=== PATIENT | male | born 1965 | race Caucasian/White ===

== ENCOUNTER → 2019-10-19 13:05 | Outpatient (BNVA) | payer MEDICARE, MEDICAID, SELFPAY | PROVIDERS: Family Provider Internal Medicine; PCP Internal Medicine; Referring Provider Internal Medicine; Visit Provider Podiatrist Foot & Ankle Surgery | DX: M79.672 Pain in left foot (principal); M79.671 Pain in right foot | CPT/HCPCS: 73620; 73630 ==

== ENCOUNTER → 2019-11-10 09:39 | Outpatient (BNVA) | payer MEDICARE, MEDICAID, SELFPAY | PROVIDERS: Family Provider Internal Medicine; PCP Internal Medicine; Visit Provider Nurse Practitioner | DX: F31.81 Bipolar II disorder (principal); F70 Mild intellectual disabilities | CPT/HCPCS: 99213 ==

== ENCOUNTER → 2020-05-09 07:49 | Outpatient (BNVA) | payer MEDICARE, MEDICAID, SELFPAY | PROVIDERS: Family Provider Internal Medicine; PCP Internal Medicine; Visit Provider Nurse Practitioner | DX: F31.81 Bipolar II disorder (principal); F70 Mild intellectual disabilities | CPT/HCPCS: 99213 ==

== ENCOUNTER → 2020-11-07 07:33 | Outpatient (BNVA) | payer MEDICARE, MEDICAID, SELFPAY | PROVIDERS: Family Provider Internal Medicine; PCP Internal Medicine; Visit Provider Nurse Practitioner | DX: F31.81 Bipolar II disorder (principal); F70 Mild intellectual disabilities | CPT/HCPCS: 99214 ==

== ENCOUNTER → 2021-05-01 08:48 | Outpatient (BNVA) | payer MEDICARE, MEDICAID, SELFPAY | PROVIDERS: Family Provider Internal Medicine; PCP Internal Medicine; Visit Provider Nurse Practitioner | DX: F31.81 Bipolar II disorder (principal); F70 Mild intellectual disabilities; F43.21 Adjustment disorder with depressed mood | CPT/HCPCS: 99214 ==

== ENCOUNTER → 2021-06-26 09:12 | Outpatient (BNVA) | payer MEDICARE, MEDICAID, SELFPAY | PROVIDERS: Family Provider Internal Medicine; PCP Internal Medicine; Visit Provider Nurse Practitioner | DX: F31.81 Bipolar II disorder (principal); F70 Mild intellectual disabilities; F43.21 Adjustment disorder with depressed mood | CPT/HCPCS: 99214 ==

== ENCOUNTER → 2021-08-20 08:45 | Outpatient (BNVA) | payer MEDICARE, MEDICAID, SELFPAY | PROVIDERS: Family Provider Internal Medicine; PCP Internal Medicine; Visit Provider Nurse Practitioner | DX: F31.81 Bipolar II disorder (principal); F70 Mild intellectual disabilities | CPT/HCPCS: 99214 ==

== ENCOUNTER → 2021-11-19 08:46 | Outpatient (BNVA) | payer MEDICARE, MEDICAID, SELFPAY | PROVIDERS: Family Provider Internal Medicine; PCP Internal Medicine; Visit Provider Nurse Practitioner | DX: F31.9 Bipolar disorder, unspecified (principal); F70 Mild intellectual disabilities | CPT/HCPCS: 99214 ==

== ENCOUNTER → 2022-02-10 09:06 | Outpatient (BNVA) | payer MEDICARE, MEDICAID, SELFPAY | PROVIDERS: Family Provider Internal Medicine; PCP Internal Medicine; Visit Provider Podiatrist Foot & Ankle Surgery | DX: L84 Corns and callosities (principal); M79.672 Pain in left foot; M20.41 Other hammer toe(s) (acquired), right foot; M20.11 Hallux valgus (acquired), right foot; M20.12 Hallux valgus (acquired), left foot; M20.42 Other hammer toe(s) (acquired), left foot | CPT/HCPCS: 99213 ==

== ENCOUNTER → 2022-06-04 10:50 | Outpatient (BNVA) | payer MEDICARE, MEDICAID, OTHER, SELFPAY | PROVIDERS: Family Provider Internal Medicine; Visit Provider Podiatrist Foot & Ankle Surgery | DX: L85.1 Acquired keratosis [keratoderma] palmaris et plantaris (principal); L84 Corns and callosities; M20.41 Other hammer toe(s) (acquired), right foot; M20.42 Other hammer toe(s) (acquired), left foot; M20.11 Hallux valgus (acquired), right foot; M20.12 Hallux valgus (acquired), left foot | CPT/HCPCS: 17110 ==

== ENCOUNTER 2022-09-07 08:57 | Emergency (ER) | payer MEDICARE, MEDICAID, SELFPAY ==
[2022-09-07 09:06] VITALS: BP 104/69; PULSE 71; RESP 16; TEMP 36.1; O2SAT 95
--- NOTE | 2022-09-07 09:29 | CTR_ITS ---
PROCEDURE INFORMATION: Exam: CT Head Without Contrast Exam date and time: 09/07/2022 9:36 AM Age: 56 years old Clinical indication: Injury or trauma; Fall; Blunt trauma (contusions or hematomas) TECHNIQUE: Imaging protocol: Computed tomography of the head without contrast. Radiation optimization: All CT scans at this facility use at least one of these dose optimization techniques: automated exposure control; mA and/or kV adjustment per patient size (includes targeted exams where dose is matched to clinical indication); or iterative reconstruction. COMPARISON: No relevant prior studies available. RADIATION DOSE METRICS: Total DLP (mGy-cm): 1231.84 FINDINGS: Brain: Congenital absence of the corpus callosum is seen with parallel appearance of the ventricles. Mildly prominent brain sulci seen.There are no intracranial masses, mass effect or midline shift. There is no cerebral edema. There is no subarachnoid hemorrhage. There are no intra-or extra-axial fluid collections, intraventricular or intraparenchymal hemorrhage. Cerebral ventricles: Parallel appearance of the ventricles is seen, related to congenital change. Mildly prominent ventricles are seen. The 3rd and 4th ventricles appear unremarkable. The suprasellar and basilar cisterns appear unremarkable. Paranasal sinuses: The visualized sinuses show a right sphenoid sinus 0.7 x 1.1 cm mucous retention cyst. Mastoid air cells: The visualized mastoids are unremarkable. Orbital cavities: The visualized orbits are unremarkable. Bones/joints: No definite acute osseous or skull abnormalities seen. Soft tissues: Unremarkable. Notes: If there is further clinical concern for intracranial pathology, MRI of the brain may be performed for further assessment. CT/CT head wo con* [id number] IMPRESSION: 1. No noncontrast CT evidence of acute posttraumatic intracranial abnormality. 2. Congenital absence of the corpus callosum.
--- NOTE | 2022-09-07 09:29 | CTR_ITS ---
PROCEDURE INFORMATION: Exam: CT Cervical Spine Without Contrast Exam date and time: 09/07/2022 9:36 AM Age: 56 years old Clinical indication: Injury or trauma; Fall; Blunt trauma TECHNIQUE: Imaging protocol: Computed tomography of the cervical spine without contrast. Radiation optimization: All CT scans at this facility use at least one of these dose optimization techniques: automated exposure control; mA and/or kV adjustment per patient size (includes targeted exams where dose is matched to clinical indication); or iterative reconstruction. COMPARISON: No relevant prior studies available. RADIATION DOSE METRICS: Total DLP (mGy-cm): 308.8 FINDINGS: Bones/joints: There is straightening of the alignment of the cervical spine, which may be related to positioning or muscle spasm. The skull base alignment appears normal. There are no fractures. The spinous processes are normal. The facet joint, spinolaminar and spinous process alignments are normal. The atlantodental alignment and craniocervical junction region appear unremarkable. Mild atlantodental degenerative changes. Medium-sized anterior degenerative osteophytes are seen at the C4-C5 and C5-C6 levels. C1-C2: Normal alignment. No spinal canal narrowing. C2-C3: The disc is unremarkable. Unremarkable facet joints. No central spinal stenosis. No neuroforaminal narrowing. C3-C4: The disc is unremarkable. Unremarkable facet joints. No central spinal stenosis. No neuroforaminal narrowing. C4-C5: The disc is unremarkable. Unremarkable facet joints. No central spinal stenosis. No neuroforaminal narrowing. C5-C6: The disc is unremarkable. Unremarkable facet joints. No central spinal stenosis. No neuroforaminal narrowing. C6-C7: The disc is unremarkable. Unremarkable facet joints. No central spinal stenosis. No neuroforaminal narrowing. C7-T1: The disc is unremarkable. Unremarkable facet joints. No central spinal stenosis. No neuroforaminal narrowing. Lungs: Lung apices are normal. Soft tissues: Prevertebral soft tissues are unremarkable. The paraspinal soft tissues appear unremarkable. Notes: MRI or CT myelogram may be performed for further evaluation, if there is clinical concern. CT/CT cervical spin wo con* [id number] IMPRESSION: No fractures or subluxations of the cervical spine.
[2022-09-07] MEDS: tetanus-diphtheria tox (adult) 0.5 mL SDV IM (10:12)
--- NOTE | 2022-09-07 10:37 | W.ED.WOUNDLC ---
HPI - Wound/Laceration General: Chief Complaint: Wound/Laceration Stated Complaint: fall, right ear lac Time Seen by Provider: 09/07/22 09:10 History of Present Illness: 56-year-old male patient presents to the emergency department with laceration to the right outer ear. Patient states he tripped and fell and hit a dresser. Patient does not know his last tetanus shot. Patient is not sure if he lost any consciousness. Patient denies any neck pain. Patient denies any head pain at this time. Patient denies any nausea or vomiting. Patient denies any history of being on anticoagulants. Associated symptoms: Denies chills, fever(s), nausea, syncope or vomiting Review of Systems Const: Denies: fever(s), chills, body aches, change in appetite, change in weight, fatigue, malaise or diaphoresis Eyes: Denies: change in vision, blurry vision, blind spots, photophobia, eye discomfort, eye discharge, eye redness, floaters or seeing flashes ENMT: Denies: throat pain, uvular edema, enlarged tonsils, odynophagia, hoarseness, mouth pain, swelling of lips/tongue, oral sores, bleeding gums, dental pain, dry mouth, ear discharge, change in hearing, tinnitus, disequilibrium, nasal discharge, nasal congestion, post nasal drip or sinus pain Card: Denies: chest pain, palpitations, irregular heart rhythm, edema, swelling of feet/ankles, lightheadedness, syncope, pre-syncope, dyspnea on exertion, orthopnea, leg pain with exertion or acrocyanosis Resp: Denies: dyspnea, productive cough, non-productive cough, wheezing, stridor, pain on inspiration, change in phlegm color, hemoptysis or chest congestion GI: Denies: abdominal pain, nausea, vomiting, hematemesis, dysphagia, diarrhea, constipation, GI cramping, change in bowel habits or rectal pain : Denies: flank pain, dysuria, urinary frequency, urinary urgency, urinary hesitancy or hematuria Musc: Denies: neck pain, back pain, extremity pain, extremity swelling, joint pain, joint swelling, joint redness, joint warmth or deformity Skin/Breast: Denies: rash, pruritus, erythema, sores, new lesions, changes in skin color or dry skin Neuro: Denies: headache(s), numbness in extremities, weakness in extremities, sensory changes, lack of coordination, difficulty walking, frequent falls, dizziness, vertigo, confusion, behavioral changes, Slurred speech present, difficulty communicating thoughts or seizure-like activity Psych: Denies: anxiety, depression, suicidal ideation or homicidal ideation Endo: Denies: polyuria, polydipsia, tired all the time, cold intolerance, excessive sweating, flushing, hot flashes or heat intolerance Magen/Lymph: Denies: easy bruising, easy bleeding, petechiae, purpura, enlarged lymph nodes or tender lymph nodes All/Imm: Denies: urticaria, throat swelling, tongue swelling, facial swelling, acute wheezing or itchy eyes PFSH ED PFSH: Medical History ADD (attention deficit disorder) Bipolar disorder, unspecified Bipolar II disorder Congenital mitral insufficiency Constipation Grief Mild intellectual disabilities Psychiatric care Surgical History S/P colonoscopy S/P excision of skin lesion, follow-up exam Family History Other Cancer Denies family history of Diabetes CAD (coronary artery disease) Clotting disorder Dementia Hyperlipidemia Psychiatric illness Chronic kidney disease (CKD) Suicide Anesthesia complication Bleeding disorder Family history of premature coronary artery disease Lung disease Hypertension Stroke Social History Smoking and tobacco status: never smoked Alcohol intake: never Caregiver/support person: Yes Lives independently: No Household members: other Housing: Assisted Living Facility Current occupational status: disabled History of recent travel: No Physical Exam Const: COMMON NORMALS: no acute distress, patient oriented x3, healthy appearing, alert and well nourished GENERAL APPEARANCE: cooperative, comfortable, well kempt and well developed; not ill appearing ORIENTATION/CONSCIOUSNESS: Yes awake, Yes oriented to person, Yes oriented to place and Yes oriented to time HENMT: COMMON NORMALS: normocephalic, atraumatic, hearing grossly normal bilaterally, EAC's normal, TM's normal bilaterally, Normal external nose present, Normal nasal mucous membranes and turbinates present and moist oral mucous membranes HEAD & SCALP: normal to inspection, normocephalic and atraumatic FACE & SINUS: normal facial exam, sinuses nontender and face symmetric NOSE: Normal external nose present, Normal nares present, Normal nasal mucous membranes and turbinates present, No nasal discharge present and Abnormal external nose present EXTERNAL EAR: Yes mastoids normal EXTERNAL AUDITORY CANAL: EAC's normal TYMPANIC MEMBRANE: TM's normal bilaterally MOUTH: Normal oral and palatal mucosa present, lip normal, tongue normal and Normal salivary glands and ducts present THROAT: no uvular edema Eye: COMMON NORMALS: Equal, round and reactive pupils present, EOMs intact bilaterally, conjunctivae normal and no scleral icterus GENERAL EYE: appearance normal, both eyes and all related structures EYELID: eyelids normal CONJUNCTIVA: Yes conjunctivae normal SCLERA: sclerae normal CORNEA: Yes corneas normal PUPIL: Yes Equal, round and reactive pupils present Neck/C-Spine: COMMON NORMALS: full ROM, no lymphadenopathy, supple, no meningeal signs, no JVD and Thyroid normal GENERAL: Yes normal visual inspection and Yes trachea midline THYROID: Thyroid normal CERVICAL SPINE: Yes cervical ROM normal Lymph: LYMPHATIC: no lymphadenopathy noted and no lymphedema noted Chest: COMMONS NORMALS: normal inspection of the chest and normal palpation of entire chest wall Resp: COMMON NORMALS: normal respiratory effort, No retractions, No use of accessory muscles and clear to auscultation bilaterally EFFORT & INSPECTION: Yes able to speak in complete sentences and Yes symmetric chest movement AUSCULTATION: clear to auscultation bilaterally Cardio: COMMON NORMALS: no JVD, regular rate and regular rhythm RATE: regular rate RHYTHM: regular rhythm Back/Pelvis: COMMON NORMALS: thoracic and lumbar spine normal to inspection, no thoracic nor lumbar tenderness, thoraco-lumbar ROM normal and straight leg raise negative bilaterally THORACIC SPINE/UPPER BACK: Yes normal to inspection LUMBAR SPINE/LOWER BACK: Yes normal to inspection Extremity: COMMON NORMALS: normal to inspection, full ROM and capillary refill normal GENERAL: Yes normal exam except as noted Neuro: COMMON NORMALS: patient oriented x3, CN's II-XII intact bilaterally, moves all extremities, no focal motor deficits, no sensory deficits noted, deep tendon reflexes 2+ bilaterally and gait normal SENSORIUM/ORIENTATION: Yes alert, Yes oriented to person, Yes oriented to place and Yes oriented to time MENINGEAL SIGNS: Yes no meningeal signs CRANIAL NERVES: Yes CN normal except as noted SPEECH: speech normal GAIT: Yes Normal gait present SENSORY EXAM: Yes extremities MOTOR EXAM: 5/5 motor strength present throughout Psych: COMMON NORMALS: mental status grossly normal, Normal thought process present, cooperative, normal affect, speech normal, activity/motor behavior normal, denies hallucinations, denies homicidal ideation and denies suicidal ideation APPEARANCE: Yes grossly normal and Yes well kempt ATTITUDE: Yes calm ACTIVITY/MOTOR BEHAVIOR: Yes appropriate eye contact SPEECH: Yes normal speech THOUGHT PROCESS: Normal thought process present THOUGHT CONTENT: Yes Normal thought content present ATTENTION/CONCENTRATION: Yes attention grossly intact MEMORY/COGNITION: Yes memory grossly intact INSIGHT: Good insight present (Psych) JUDGEMENT: Good judgement present (Psych) Skin: COMMON NORMALS: no rashes or lesions noted, turgor normal, no jaundice, no petechiae and no mottling GENERAL SKIN EXAM: no rashes or lesions noted and turgor normal Course Vital Signs: Vital signs: Vital Signs Temperature 97.0 F L 09/07/22 09:06 Pulse Rate 71 09/07/22 09:06 Respiratory Rate 16 09/07/22 09:06 Blood Pressure 104/69 09/07/22 09:06 Pulse Oximetry 95 09/07/22 09:06 MDM - Wound/Laceration Medical Decision Making Patient is well-appearing nontoxic and in no acute distress. Patient does not have any neuro deficits noted. Patient ambulates without difficulty. 56-year-old male patient presents to the emergency department with laceration to the right outer ear. Patient states he tripped and fell and hit a dresser. Patient does not know his last tetanus shot. Patient is not sure if he lost any consciousness. Patient denies any neck pain. Patient denies any head pain at this time. Patient denies any nausea or vomiting. Patient denies any history of being on anticoagulants. There is a 1.5 cm laceration to the very outer portion of the right ear. Caregiver states that if there is any way to include this rather than sutures they both would much prefer this as patient has history of Down syndrome and does not tolerate pain well. While sutures would ultimately be better skin adhesive is appropriate I discussed with patient and caregiver the importance of keeping this area dry. Laceration to the right ear was cleaned irrigated and 3 layers of skin adhesive was applied good approximation was achieved. CT head and cervical spine are negative for acute findings. I discussed return precautions as well as home care Differential Diagnosis Likely laceration, abrasion and avulsion of skin Lab Data Radiology Impressions Cervical Spine CT 09/07/22 09:29 IMPRESSION: No fractures or subluxations of the cervical spine. Head CT 09/07/22 09:29 IMPRESSION: 1. No noncontrast CT evidence of acute posttraumatic intracranial abnormality. 2. Congenital absence of the corpus callosum. Discharge Plan Discharge Condition: Stable Prescriptions: No Action Tussin Cough (DM only) 15 mg/5 mL liquid 15 mg PO .every 4 hours magnesium hydroxide 800 mg/5 mL suspension PO .at bedtime PRN bupropion HCl [Wellbutrin XL] 300 mg tablet extended release 24 hr 300 mg PO QAM Qty: 30 5RF bupropion HCl [Wellbutrin XL] 150 mg tablet extended release 24 hr 150 mg PO QAM Qty: 30 5RF clonazepam [Klonopin] 0.5 mg tablet 0.5 mg PO TID Qty: 90 5RF divalproex [Depakote ER] 250 mg tablet extended release 24 hr 250 mg PO .QHS Qty: 30 5RF divalproex [Depakote ER] 500 mg tablet extended release 24 hr 500 mg PO BID Qty: 60 5RF propranolol 10 mg tablet 10 mg PO DAILY Qty: 30 5RF sertraline [Zoloft] 100 mg tablet 100 mg PO DAILY Qty: 30 2RF A&D Ointment See Rx Instructions topical 1XD Qty: 1 0RF Rx Instructions: topical 1 time daily; bisacodyl [Dulcolax (bisacodyl)] 5 mg tablet,delayed release (DR/EC) 5 mg PO BID PRN olanzapine 10 mg tablet 10 mg PO BID Qty: 60 2RF lorazepam [Ativan] 1 mg tablet 1 mg PO DAILY PRN (Reason: anxiety/agitation) Qty: 30 2RF bismuth subsalicylate [Pepto-Bismol] 262 mg/15 mL suspension See Rx Instructions .ROUTE .COMPLEX Qty: 236 12RF Dose Instruction: take 30ml BY MOUTH NEEDED FOR upset stomach Rx Instructions: take 30ml BY MOUTH NEEDED FOR upset stomach hydrocortisone 2.5 % cream with perineal applicator See Rx Instructions .ROUTE .COMPLEX Qty: 30 5RF Dose Instruction: APPLY TO rectum TWICE DAILY NEEDED FOR HEMORRHOIDS Rx Instructions: APPLY TO rectum TWICE DAILY NEEDED FOR HEMORRHOIDS loratadine 10 mg tablet See Rx Instructions .ROUTE .COMPLEX Qty: 30 5RF Dose Instruction: TAKE ONE TABLET BY MOUTH EVERY DAY FOR seasonal allergies Rx Instructions: TAKE ONE TABLET BY MOUTH EVERY DAY FOR seasonal allergies Gnp Fish Oil 1000mg Sgc 300ct See Rx Instructions .ROUTE .COMPLEX Qty: 60 5RF Dose Instruction: TAKE ONE CAPSULE BY MOUTH EVERY DAY Rx Instructions: TAKE ONE CAPSULE BY MOUTH EVERY DAY docusate sodium 100 mg capsule See Rx Instructions .ROUTE .COMPLEX Qty: 60 5RF Dose Instruction: TAKE ONE CAPSULE BY MOUTH TWICE DAILY FOR CONSTIPATION Rx Instructions: TAKE ONE CAPSULE BY MOUTH TWICE DAILY FOR CONSTIPATION Debrox 6.5 % drops 5 drp EAR-BOTH BID 5 Days Qty: 15 0RF Rx Instructions: each month acetaminophen 325 mg tablet See Rx Instructions .ROUTE .COMPLEX Qty: 120 5RF Dose Instruction: TAKE TWO TABLETS BY MOUTH EVERY 4 HOURS NEEDED FOR pain/elevated temperature >100 Rx Instructions: TAKE TWO TABLETS BY MOUTH EVERY 4 HOURS NEEDED FOR pain/elevated temperature >100 loperamide [Imodium A-D] 2 mg capsule 2 mg PO DAILY PRN (Reason: loose stool) Qty: 120 3RF Rx Instructions: Take 2 capsules one time, then 1 capsule after each loose stool. Max is 4 capsules in 24 hours Referrals: Aj Singer DO [Primary Care Provider] - Coding Level of Care Code ED [employer] Operations Manager for [facility]
[2022-09-07 10:51] VITALS: PULSE 66; RESP 16; O2SAT 96
== END 2022-09-07 10:52 | disposition home or self-care (01) ==
PROVIDERS: Emergency Provider Registered Nurse; PCP Family Medicine
DX: S01.311A Laceration without foreign body of right ear, initial encounter (principal); W01.190A Fall on same level from slipping, tripping and stumbling with subsequent striking against furniture, initial encounter; Z23 Encounter for immunization; Q90.9 Down syndrome, unspecified
CPT/HCPCS: 12011; 70450; 72125; 90471; 90714; 99284

== ENCOUNTER → 2022-09-24 11:24 | Outpatient (BNVA) | payer MEDICARE, MEDICAID, SELFPAY | PROVIDERS: PCP Family Medicine; Visit Provider Podiatrist Foot & Ankle Surgery | DX: L85.1 Acquired keratosis [keratoderma] palmaris et plantaris (principal); L84 Corns and callosities; M20.40 Other hammer toe(s) (acquired), unspecified foot; M20.10 Hallux valgus (acquired), unspecified foot; M20.42 Other hammer toe(s) (acquired), left foot; M20.41 Other hammer toe(s) (acquired), right foot; M20.12 Hallux valgus (acquired), left foot; M20.11 Hallux valgus (acquired), right foot | CPT/HCPCS: 17110 ==

== ENCOUNTER → 2022-12-24 10:07 | Outpatient (BNVA) | payer MEDICARE, MEDICAID, SELFPAY | PROVIDERS: PCP Family Medicine; Visit Provider Podiatrist Foot & Ankle Surgery | DX: L60.3 Nail dystrophy (principal); L84 Corns and callosities; M20.41 Other hammer toe(s) (acquired), right foot; M20.42 Other hammer toe(s) (acquired), left foot; M20.11 Hallux valgus (acquired), right foot | CPT/HCPCS: 99213 ==

== ENCOUNTER → 2023-03-25 09:38 | Outpatient (BNVA) | payer MEDICARE, MEDICAID, SELFPAY | PROVIDERS: PCP Family Medicine; Visit Provider Podiatrist Foot & Ankle Surgery | DX: L85.1 Acquired keratosis [keratoderma] palmaris et plantaris (principal) | CPT/HCPCS: 17110 ==

== ENCOUNTER → 2023-06-24 09:59 | Outpatient (BNVA) | payer MEDICARE, MEDICAID, SELFPAY | PROVIDERS: PCP Family Medicine; Visit Provider Podiatrist Foot & Ankle Surgery | DX: L85.1 Acquired keratosis [keratoderma] palmaris et plantaris (principal) | CPT/HCPCS: 17110 ==

== ENCOUNTER → 2023-08-19 09:15 | Outpatient (BNVA) | payer MEDICARE, MEDICAID, SELFPAY | PROVIDERS: PCP Family Medicine; Visit Provider Podiatrist Foot & Ankle Surgery | DX: L85.1 Acquired keratosis [keratoderma] palmaris et plantaris (principal) | CPT/HCPCS: 99213 ==

== ENCOUNTER → 2024-04-06 07:08 | Outpatient (BNVA) | payer MEDICARE, MEDICAID, SELFPAY | PROVIDERS: PCP Family Medicine; Visit Provider Podiatrist Foot & Ankle Surgery | DX: L60.3 Nail dystrophy (principal); L84 Corns and callosities; I73.9 Peripheral vascular disease, unspecified; M79.671 Pain in right foot; M79.672 Pain in left foot | CPT/HCPCS: 11056; 11721 ==

== ENCOUNTER → 2024-08-09 07:05 | Outpatient (BNVA) | payer MEDICARE, MEDICAID, SELFPAY | PROVIDERS: PCP Family Medicine; Visit Provider Podiatrist Foot & Ankle Surgery | DX: L60.3 Nail dystrophy (principal); L84 Corns and callosities; I73.9 Peripheral vascular disease, unspecified | CPT/HCPCS: 11056; 11721 ==

== ENCOUNTER → 2024-12-20 08:44 | Outpatient (BNVA) | payer MEDICARE, MEDICAID, SELFPAY | PROVIDERS: PCP Family Medicine; Referring Provider Family Medicine; Visit Provider Psychiatry & Neurology Neurology | DX: R41.3 Other amnesia (principal); K59.00 Constipation, unspecified; R41.0 Disorientation, unspecified | CPT/HCPCS: 99203 ==

== ENCOUNTER → 2024-12-21 09:43 | Outpatient (BNVA) | payer MEDICARE, MEDICAID, SELFPAY | PROVIDERS: PCP Family Medicine; Visit Provider Podiatrist Foot & Ankle Surgery | DX: I73.9 Peripheral vascular disease, unspecified (principal); L60.3 Nail dystrophy; L84 Corns and callosities; M79.671 Pain in right foot; M79.672 Pain in left foot | CPT/HCPCS: 11056; 11721 ==

== ENCOUNTER 2024-12-27 13:29 | Outpatient (CLI) | payer MEDICARE, MEDICAID, SELFPAY ==
--- NOTE | 2024-12-27 13:45 | MR_ITS ---
WS: [id number] MRI BRAIN WITHOUT CONTRAST HISTORY: R41.3 - Other amnesia COMPARISON: CT head 09/07/2022 TECHNIQUE: Diffusion imaging, multiplanar T1, T2 and FLAIR imaging obtained. No evidence for acute infarct or hemorrhage. Fishman-white matter differentiation is normal. Minimal small vessel disease. No large territory infarct. Mild symmetric atrophy. Abnormal configuration of the ventricles consistent with absent corpus callosum. The entire corpus callosum is absent. High riding third ventricle and splaying of the lateral ventricles. No inferior displacement of cerebellar tonsils. The sella turcica and pituitary gland are unremarkable. Dural venous sinuses and [place] of [place] demonstrate no abnormality on this unenhanced studies. Paranasal sinuses: Clear. Mastoid air cells: Normal. Calvarium and scalp: Intact. MR/MR head wo con* [id number] IMPRESSION: 1. No acute infarct or hemorrhage. 2. Complete absence of the corpus callosum. 3. No paranasal sinus disease. 4. Minimal small vessel disease and mild atrophy.
== END 2024-12-27 13:30 | disposition home or self-care (01) ==
LOC: RAD 13:31
PROVIDERS: PCP Family Medicine; Visit Provider Psychiatry & Neurology Neurology
DX: R41.3 Other amnesia (principal); R93.0 Abnormal findings on diagnostic imaging of skull and head, not elsewhere classified; G31.89 Other specified degenerative diseases of nervous system
CPT/HCPCS: 70551

== ENCOUNTER → 2025-01-17 14:36 | Outpatient (BNVA) | payer MEDICARE, MEDICAID, OTHER, SELFPAY | PROVIDERS: PCP Family Medicine; Referring Provider Psychiatry & Neurology Neurology; Visit Provider Psychiatry & Neurology Neurology | DX: R41.3 Other amnesia (principal); R41.0 Disorientation, unspecified; R56.9 Unspecified convulsions | CPT/HCPCS: 95813 ==

== ENCOUNTER → 2025-03-28 08:46 | Outpatient (BNVA) | payer MEDICARE, MEDICAID, SELFPAY | PROVIDERS: PCP Family Medicine; Visit Provider Podiatrist Foot & Ankle Surgery | DX: I73.9 Peripheral vascular disease, unspecified (principal); L60.3 Nail dystrophy; L84 Corns and callosities; L60.8 Other nail disorders | CPT/HCPCS: 11056; 11721 ==

== ENCOUNTER 2025-05-04 14:41 | Outpatient (CLI) | payer MEDICARE, MEDICAID, SELFPAY ==
--- NOTE | 2025-05-04 14:45 | USCV_ITS ---
Gerald Pendleton Age: 59 Gender: M : 1965 Exam Date: 05/04/2025 14:59 Ordering Phys: Aj Singer DO Technologist: Exam Location: [facility] [place] Indication: swelling HISTORY: Lower extremity swelling. PROCEDURES: Venous duplex imaging was performed in only the left lower extremity. FINDINGS: No evidence of DVT seen in any vessel visualized at this time. superficial thrombus noted in LT GSV below knee and at knee CONCLUSIONS Acute occlusive superficial thrombus in the GSV extending from upper calf to just above the knee, >3cm from the saphenofemoral junction No evidence of left lower extremity DVT. Prelim to Dr Singer at time of study Krishan Mckeon MD (Electronically Signed) Final Date: 04 May 2025 15:40 S
== END 2025-05-04 14:42 | disposition home or self-care (01) ==
LOC: RAD 14:44
PROVIDERS: PCP Family Medicine; Visit Provider Family Medicine
DX: M79.89 Other specified soft tissue disorders (principal); M79.605 Pain in left leg; R09.89 Other specified symptoms and signs involving the circulatory and respiratory systems
CPT/HCPCS: 93971

== ENCOUNTER → 2025-07-03 09:03 | Outpatient (BNVA) | payer MEDICARE, MEDICAID, SELFPAY | PROVIDERS: PCP Family Medicine; Visit Provider Podiatrist Foot & Ankle Surgery | DX: I73.9 Peripheral vascular disease, unspecified (principal); L60.3 Nail dystrophy; L84 Corns and callosities; L60.8 Other nail disorders; M79.671 Pain in right foot; M79.672 Pain in left foot | CPT/HCPCS: 11721; 99213 ==